=== PATIENT | female | born 1990 | race Hispanic/Latino ===

== ENCOUNTER → 2020-05-19 13:07 | Outpatient (CLI) | payer OTHER, MEDICAID, SELFPAY ==
--- NOTE | 2020-05-19 13:12 | DI.MG.S_ITS ---
BILATERAL DIGITAL DIAGNOSTIC MAMMOGRAM 3D/2D: 05/19/2020 CLINICAL: Baseline exam. Right breast lump. No prior exams were available for comparison. The tissue of both breasts is extremely dense, which lowers the sensitivity of mammography. No significant masses, calcifications, or other findings are seen in either breast. IMPRESSION: INCOMPLETE: NEEDS ADDITIONAL IMAGING EVALUATION No suspicious finding. Ultrasound is being performed immediately after this exam. This exam was interpreted at Station ID: [id number]. NOTE: For mammograms, a report in lay terms will be sent to the patient. Approximately 15% of breast malignancies will not be visualized mammographically. In the management of a palpable breast mass, a negative mammogram must not discourage biopsy of a clinically suspicious lesion. Electronically Signed By: Rick Lisa M.D. jr/:05/19/2020 14:33:44 letter sent: Additional Imaging Needed ACR BI-RADS Category 0: Incomplete [id number]
--- NOTE | 2020-05-19 13:12 | DI.US.S_ITS ---
LIMITED ULTRASOUND OF RIGHT BREAST: 05/19/2020 CLINICAL: Open sore right breast. Comparison is made to exam dated: 05/19/2020 [facility]. Color flow and real-time ultrasound of the right breast 1-2 o'clock region were performed. Hayes scale images of the real-time examination were reviewed. There is a benign 0.4 cm x 2.3 cm cyst in the right breast at 1 o'clock posterior depth. IMPRESSION: BENIGN There is no sonographic evidence of malignancy. The 0.4 cm x 2.3 cm cyst in the right breast is consistent with a sebaceous cyst and is benign. This exam was interpreted at Station ID: [id number]. Electronically Signed By: Rick Lisa M.D., jr/marcy:05/19/2020 14:32:02 letter sent: Normal Exam Ultrasound BI-RADS: 2 Benign
== END ==
PROVIDERS: PCP Physician Assistant; Referring Provider Physician Assistant; Visit Provider Physician Assistant
DX: R92.8 Other abnormal and inconclusive findings on diagnostic imaging of breast (principal); N60.01 Solitary cyst of right breast
CPT/HCPCS: 76642; 77066; G0279